=== PATIENT | female | born 1970 ===

== ENCOUNTER 2019-02-28 06:15 | Day surgery (SDC) | payer OTHER ==
[2019-02-28] VITALS (10 sets, daily range): BP systolic 85–115; BP diastolic 54–74
[~2019-02-28] VITALS: Ht 157.5 cm; Wt 72.1 kg
[~2019-02-28 06:15] MED LIST: ceFAZolin 1gm IVPB IVPB ONE; celeBREX 200mg Cap **SURGERY PATIENTS ONLY ORAL ONE; oxyCONTIN 20mg tab ORAL ONE
[2019-02-28] MEDS ORDERED: NKM (07:28)
[2019-02-28] MEDS ORDERED: Duramorph PF 5mg/10ml amp ONE (07:50)
[2019-02-28] MEDS ORDERED: Kenalog-40 1ml Vial ONE (07:50)
[2019-02-28] MEDS ORDERED: Bupivacaine 0.25% Inj 30ml INJ ONE (07:50)
[2019-02-28] MEDS ORDERED: Lidocaine 1% 10mg/ml/Epi 0.005mg/ml 30ml vial INJ ONE (07:50)
[2019-02-28] MEDS ORDERED: LR 1000ml 1,000 ML IVLG SCH (07:53)
--- NOTE | 2019-02-28 07:53 | Anethesia Preoperative Eval ---
Anesthesia Pre-op PMH/ROS General Date of Evaluation: Feb 28, 2019 Anesthesiologist: Naveen ASA Score: ASA 2 Mallampati Score Class I : Soft palate, uvula, fauces, pillars visible Class II: Soft palate, uvula, fauces visible Class III: Soft palate, base of uvula visible Class IV: Only hard plate visible Mallampati Classification: Class II Surgeon: Jose D Diagnosis: Left knee pain Surgical Procedure: Left knee arthroscopy Anesthesia History: none Family History: no anesthesia problems Allergies: Coded Allergies: No Known Allergies (Unverified , 02/26/19) Medications: see eMAR Patient NPO?: Yes NPO Date: Feb 27, 2019 NPO Time: 22:00 Past Medical History Cardiovascular: Denies: HTN, CAD, PA, valve dz, arrhythmia, other Pulmonary: Denies: asthma, COPD, HAROLDO, other Gastrointestinal/Genitourinary: Denies: GERD, CRI, ESRD, other Neurologic/Psychiatric: Denies: dementia, CVA, depression/anxiety, TIA, other Endocrine: Denies: DM, hypothyroidism, steroids, other HEENT: Denies: cataract (L), cataract (R), glaucoma, [place] (L), [place] (R), other Hematology/Immune: Reports: anemia; Denies: DVT, bleeding disorder, other Musculoskeletal/Integumentary: Reports: OA; Denies: RA, DJD, DDD, edema, other PSxH Narrative: c/s Anesthesia Pre-op Phys. Exam Physician Exam Last Vital Signs Date Time Temp Pulse Resp B/P (MAP) Pulse Ox O2 Delivery O2 Flow Rate FiO2 02/28/19 07:24 Room Air 02/28/19 07:20 97.8 59 20 96/63 99 Constitutional: NAD Cardiovascular: RRR Respiratory: CTA Airway Exam Mallampati Score: Class II MO: full ROM: full Anesthesia Pre-op A/P Labs see chart Urine Test Test 02/28/19 06:30 Urine HCG, Qualitative Negative (NEGATIVE) Studies Pre-op Studies: EKG - sr Risk Assessment & Plan Assessment: ASA II Plan: GA Status Change Before Surgery: No Pre-Antibiotics Drug: Grace Salinas MD Feb 28, 2019 07:53
[2019-02-28] MEDS ORDERED: LR 1000ml ONE (08:00)
[2019-02-28] MEDS ORDERED: NS Irrig 4000ml IRRIG ONE ×2 (08:00→08:32)
[2019-02-28] MEDS ORDERED: LORazepam Inj 2mg/ml 1ml IV PRN (08:00)
[2019-02-28] MEDS ORDERED: Ketorolac 30mg Inj IV PRN (08:00)
[2019-02-28] MEDS ORDERED: Sterile Water Irrig 1000ml IRRIG ONE (08:00)
[2019-02-28] MEDS ORDERED: DiphenhydrAMINE 50mg/ml Inj IVP PRN (08:00)
[2019-02-28] MEDS ORDERED: Midazolam 2mg/2ml Inj IVP PRN (08:00)
[2019-02-28] MEDS ORDERED: fentaNYL 100 mcg/2 mL IV PRN (08:00)
[2019-02-28] MEDS ORDERED: Hydromorphone 0.5mg/0.5ml inj IVP PRN (08:00)
[2019-02-28] MEDS ORDERED: Metoclopramide 10mg/2ml Inj IVP PRN (08:00)
[2019-02-28] MEDS ORDERED: Propofol 200mg/20ml IV ONE (08:14)
[2019-02-28] MEDS ORDERED: Lidocaine 1% MPF 10mg/ml 5ml ONE (08:14)
[2019-02-28 08:22] LABS: INR 0.9 (0.9-1.1)
[2019-02-28] MEDS ORDERED: Ketorolac 30mg Inj IM ONE (08:32)
[2019-02-28] MEDS ORDERED: Duramorph PF 5mg/10ml amp IT ONE (08:32)
--- NOTE | 2019-02-28 08:33 | Pre-Procedure Note/Attestation ---
Pre-Procedure Note/Attestation Complete Prior to Procedure Planned Procedure: left Procedure Narrative: knee arthroscopy, possible menisectomy Indications for Procedure Pre-Operative Diagnosis: left knee meniscus tear Attestation I attest that I discussed the nature of the procedure; its benefits; risks and complications; and alternatives (and the risks and benefits of such alternatives ), prior to the procedure, with the patient (or the patient's legal lifeline representatives). I attest that, if there was a reasonable possibility of needing a blood transfusion, the patient (or the patient's legal lifeline representatives) was given the [facility] standardized written summary, pursuant to the Sancho Dariusz Blood Safety Act ([place] Health and Safety Code # 1645, as amended). I attest that I re-evaluated the patient just prior to the surgery and that there has been no change in the patient's H&P, except as documented below: Jose Jeffery MD Feb 28, 2019 08:33
--- NOTE | 2019-02-28 08:34 | Operative Note - PDOC ---
Operative Note Operative Note Pre-op Diagnosis: left knee meniscus tear Procedure: see op report Post-op Diagnosis: same as pre-op plus Operative Findings: consistent w/pre-op dx studies Anesthesia: MAC Specimen: none Complications: none Condition: stable Estimated Blood Loss: none Implant(s) used?: No Jose Jeffery MD Feb 28, 2019 08:34
[2019-02-28] MEDS ORDERED: D5 1/2NS 1,000 ML IV SCH (08:45)
[2019-02-28] MEDS ORDERED: Tylenol #3 tab (300mg/30mg) ORAL PRN (08:45)
[2019-02-28] MEDS ORDERED: HYDROmorphone 1mg/ml Carpuject SUBQ PRN (08:45)
[2019-02-28] MEDS ORDERED: HYDROcodone/Acetamin 5/325 tab ORAL PRN (08:45)
--- NOTE | 2019-02-28 09:19 | Immediate Post-Op Evaluation ---
Immediate Post-Op Evalulation Immediate Post-Op Evalulation Procedure: Left knee arthroscopy Date of Evaluation: Feb 28, 2019 Time of Evaluation: 09:21 IV Fluids: 500 Blood Products: 0 Estimated Blood Loss: 0 Urinary Output: 0 Blood Pressure Systolic: 85 Blood Pressure Diastolic: 54 Pulse Rate: 65 Respiratory Rate: 16 O2 Sat by Pulse Oximetry: 100 Temperature (Fahrenheit): 97.4 Pain Score (1-10): 0 Nausea: No Vomiting: No Complications 0 Patient Status: awake, reacts, patent, none Hydration Status: adequate Drug: Ancef 1g Given Within 1 Hr of Incision: Yes Grace Faustin MD Feb 28, 2019 09:19
--- NOTE | 2019-02-28 09:19 | 48 Hour Post Anesthesia Eval ---
Post Anesthesia Evaluation Procedure: Left knee arthroscopy Date of Evaluation: Feb 28, 2019 Airway: patent Nausea: No Vomiting: No Hydration Status: adequate Cardiopulmonary Status: at baseline Mental Status/LOC: patient returned to baseline Post-Anesthesia Complications: 0 Follow-up care needed: ready to discharge Grace Faustin MD Feb 28, 2019 09:19
--- NOTE | 2019-02-28 17:00 | Operative Note - Dictated ---
DATE OF OPERATION: 02/28/2019 PREOPERATIVE DIAGNOSES: Internal derangement, left knee medial meniscus tear. POSTOPERATIVE DIAGNOSES: 1. Left knee medial meniscus tear. 2. Grade 2 chondral damage medial femoral condyle. 3. Left knee ACL tear. 4. Hypertrophic synovial tissue medial and lateral patellofemoral compartment. PROCEDURES: 1. Left knee arthroscopy and partial medial meniscectomy. 2. Synovectomy medial and lateral patellofemoral compartment. 3. Gentle chondroplasty of medial compartment, posterior femoral condyle. SURGEON: Jose Jeffery M.D. ANESTHESIA: MAC. INDICATION FOR PROCEDURE: The patient is a pleasant 49-year-old male with significant injury to left knee. He had failed conservative treatment, elected to undergo left knee diagnostic arthroscopy and possible meniscectomy. Risks, limitations, expectations, complication of procedure were discussed in detail. All questions addressed. DESCRIPTION OF PROCEDURE: After informed consent was obtained, the patient was brought to the operating room and placed under general anesthesia. Left leg was prepped and draped in a sterile manner. Time-out was performed. Ancef was administered. Inferolateral stab incision was then made. Trocar was introduced into the patellofemoral compartment. There was hypertrophic fat pad synovial tissue making visualization difficult. Medial gutter was free of any loose bodies. Medial compartment entered. There was complex tear of posterior horn of medial meniscus. Medial working portal was established. Partial meniscectomy using a shaver was performed. There was grade 2 chondral damage in the posterior medial femoral condyle. Gentle chondroplasty of the chondral flaps was performed to stable tissue. Once that was completed, intercondylar notch was entered. The ACL attachment along the medial femoral condyle was completely detached. The ACL was noted to be free. Debridement . The patient was not consented for a formal ACL reconstruction. Therefore it was felt that at this point, formal reconstruction would have to be delayed and fashioned in second-stage. The lateral compartment was entered, free of meniscal chondral damage. The camera was then repositioned into the patellofemoral compartment. Synovectomy was completed. Once this was done, the patient was awoken and taken to recovery with stable vital signs. ESTIMATED BLOOD LOSS: None. COMPLICATIONS: None. SPECIMENS: None. Jose Jeffery M.D. DR: Nathan JOB#: [id number] CC:
== END 2019-02-28 11:25 | disposition home or self-care (01) ==
LOC: EDSEX 06:15 → SUR 06:15
DX: S83.242A Other tear of medial meniscus, current injury, left knee, initial encounter (principal); S83.512A Sprain of anterior cruciate ligament of left knee, initial encounter; X58.XXXA Exposure to other specified factors, initial encounter; Y92.9 Unspecified place or not applicable; M67.262 Synovial hypertrophy, not elsewhere classified, left lower leg; M19.90 Unspecified osteoarthritis, unspecified site
CPT/HCPCS: 29876; 29881; 36415; 81025; 85610; 85730; J0690; J1885; J2250; J2405; J2704; J3010; J3301; J3490; 94003; 94150

== ENCOUNTER 2019-04-04 04:56 | Day surgery (SDC) | payer OTHER ==
[2019-04-04] VITALS (16 sets, daily range): BP systolic 102–127; BP diastolic 49–76
[~2019-04-04] VITALS: Ht 157.5 cm; Wt 72.1 kg
[~2019-04-04 04:56] MED LIST changes: +NKM; -ceFAZolin 1gm IVPB IVPB ONE; +ceFAZolin sod 1gm in D5W 55ml IVPB ONE
[2019-04-04] MEDS ORDERED: oxyCONTIN 20mg tab ORAL ONE (06:00)
[2019-04-04] MEDS ORDERED: ceFAZolin 1gm IVPB IVPB ONE ×2 (06:00)
[2019-04-04] MEDS ORDERED: celeBREX 200mg Cap **SURGERY PATIENTS ONLY ORAL ONE (06:00)
[2019-04-04 06:33] LABS: BASOPHILS % (AUTO) 0.8 % (0.0-2.0); EOSINOPHILS % (AUTO) 2.9 % (0.0-3.0); HEMATOCRIT 39.5 % (37.0-47.0); HEMOGLOBIN 13.7 G/DL (12.0-16.0); LYMPHOCYTES % (AUTO) 38.2 % (20.0-45.0); MEAN CORPUSCULAR VOLUME 93 FL (80-99); MONOCYTES % (AUTO) 8.3 % (1.0-10.0); NEUTROPHILS % (AUTO) 49.8 % (45.0-75.0); PLATELET COUNT 313 K/UL (150-450); RED BLOOD COUNT 4.27 M/UL (4.20-5.40); RED CELL DISTRIBUTION WIDTH 11.1 % (11.6-14.8); WHITE BLOOD COUNT 8.4 K/UL (4.8-10.8)
[2019-04-04 06:39] LABS: ANION GAP 9 mmol/L (5-15); BLOOD UREA NITROGEN 16 mg/dL (7-18); CALCIUM 8.9 MG/DL (8.5-10.1); CARBON DIOXIDE 25 MMOL/L (21-32); CHLORIDE 104 MMOL/L (98-107); CREATININE 0.5 MG/DL (0.55-1.30); POTASSIUM 3.6 MMOL/L (3.5-5.1); SODIUM 138 MMOL/L (136-145)
[2019-04-04 06:43] LABS: INR 0.9 (0.9-1.1)
[2019-04-04] MEDS ORDERED: LR 1000ml 1,000 ML IVLG SCH (07:01)
--- NOTE | 2019-04-04 07:04 | Anethesia Preoperative Eval ---
Anesthesia Pre-op PMH/ROS General Date of Evaluation: Apr 04, 2019 Time of Evaluation: 07:39 Anesthesiologist: Lynnette ASA Score: ASA 2 Mallampati Score Class I : Soft palate, uvula, fauces, pillars visible Class II: Soft palate, uvula, fauces visible Class III: Soft palate, base of uvula visible Class IV: Only hard plate visible Mallampati Classification: Class II Surgeon: Jose D Diagnosis: L Knee Pain Surgical Procedure: L Knee Arthroscopy Anesthesia History: none Family History: no anesthesia problems Allergies: Coded Allergies: No Known Allergies (Unverified , 02/26/19) Medications: see eMAR Patient NPO?: Yes Past Medical History Gastrointestinal/Genitourinary: Reports: GERD Hematology/Immune: Reports: anemia Other: obesity PSxH Narrative: C/S, L knee Arthroscopy Anesthesia Pre-op Phys. Exam Physician Exam Last Vital Signs Date Time Temp Pulse Resp B/P (MAP) Pulse Ox O2 Delivery O2 Flow Rate FiO2 04/04/19 06:06 Room Air 04/04/19 05:46 97.1 60 18 114/66 100 Constitutional: NAD Neurologic: CN 2-12 intact Cardiovascular: RRR Respiratory: CTA Gastrointestinal: S/NT/ND Airway Exam Mallampati Score: Class II MO: full ROM: full Teeth: intact Anesthesia Pre-op A/P Labs Hematology Test 04/04/19 05:30 White Blood Count 8.4 K/UL (4.8-10.8) Red Blood Count 4.27 M/UL (4.20-5.40) Hemoglobin 13.7 G/DL (12.0-16.0) Hematocrit 39.5 % (37.0-47.0) Mean Corpuscular Volume 93 FL (80-99) Mean Corpuscular Hemoglobin 32.2 PG (27.0-31.0) H Mean Corpuscular Hemoglobin Concent 34.8 G/DL (32.0-36.0) Red Cell Distribution Width 11.1 % (11.6-14.8) L Platelet Count 313 K/UL (150-450) Mean Platelet Volume 6.3 FL (6.5-10.1) L Neutrophils (%) (Auto) 49.8 % (45.0-75.0) Lymphocytes (%) (Auto) 38.2 % (20.0-45.0) Monocytes (%) (Auto) 8.3 % (1.0-10.0) Eosinophils (%) (Auto) 2.9 % (0.0-3.0) Basophils (%) (Auto) 0.8 % (0.0-2.0) Coagulation Test 04/04/19 05:30 Prothrombin Time Pending Prothromb Time International Ratio Pending Activated Partial Thromboplast Time Pending Chemistry Test 04/04/19 05:30 Sodium Level 138 MMOL/L (136-145) Potassium Level 3.6 MMOL/L (3.5-5.1) Chloride Level 104 MMOL/L (98-107) Carbon Dioxide Level 25 MMOL/L (21-32) Anion Gap 9 mmol/L (5-15) Blood Urea Nitrogen 16 mg/dL (7-18) Creatinine 0.5 MG/DL (0.55-1.30) L Estimat Glomerular Filtration Rate > 60 mL/min (>60) Glucose Level 96 MG/DL (74-106) Calcium Level 8.9 MG/DL (8.5-10.1) Urine Test Test 04/04/19 05:15 Urine HCG, Qualitative Pending Risk Assessment & Plan Assessment: ASA 2 Plan: GA, Adductor Block SED Status Change Before Surgery: No Pre-Antibiotics Dru Gram Ancef IV Given Within 1 Hr of Incision: Yes Time Given: 08:01 Elliot Church MD Apr 04, 2019 07:04
[2019-04-04] MEDS ORDERED: Metoclopramide 10mg/2ml Inj IVP PRN (07:15)
[2019-04-04] MEDS ORDERED: fentaNYL 100 mcg/2 mL IV PRN (07:15)
[2019-04-04] MEDS ORDERED: Meperidine 50mg/ml Inj(FOR RIGORS ONLY) IVP PRN (07:15)
[2019-04-04] MEDS ORDERED: HYDROcodone/Acetamin 7.5/325 tab ORAL PRN (07:15)
[2019-04-04] MEDS ORDERED: DiphenhydrAMINE 50mg/ml Inj IVP PRN (07:15)
[2019-04-04] MEDS ORDERED: Ketorolac 30mg Inj IV PRN ×2 (07:15)
[2019-04-04] MEDS ORDERED: HYDROcodone/Acetamin 5/325 tab ORAL PRN ×2 (07:15→18:35)
[2019-04-04] MEDS ORDERED: Labetalol 5mg/ml 20ml vial IV PRN (07:15)
[2019-04-04] MEDS ORDERED: Atropine Sulfate 0.4mg/ml inj IVP PRN (07:15)
[2019-04-04] MEDS ORDERED: oxyCODONE HCL/Acetaminophen 5/325mg ORAL PRN (07:15)
[2019-04-04] MEDS ORDERED: Midazolam 2mg/2ml Inj IVP PRN (07:15)
[2019-04-04] MEDS ORDERED: LORazepam Inj 2mg/ml 1ml IV PRN (07:15)
[2019-04-04] MEDS ORDERED: Acetaminophen (Non formulary) 100 ML IV ONE (07:15)
--- NOTE | 2019-04-04 07:17 | Operative Note - PDOC ---
Operative Note Operative Note Pre-op Diagnosis: left knee acl tear Procedure: see op report Post-op Diagnosis: same as pre-op plus Operative Findings: consistent w/pre-op dx studies Anesthesia: regional Specimen: none Complications: none Condition: stable Estimated Blood Loss: none Implant(s) used?: Yes Jose Jeffery MD Apr 04, 2019 07:17
--- NOTE | 2019-04-04 07:17 | Pre-Procedure Note/Attestation ---
Pre-Procedure Note/Attestation Complete Prior to Procedure Planned Procedure: left Procedure Narrative: knee acl reconstruction Indications for Procedure Pre-Operative Diagnosis: left knee acl tear Attestation I attest that I discussed the nature of the procedure; its benefits; risks and complications; and alternatives (and the risks and benefits of such alternatives ), prior to the procedure, with the patient (or the patient's legal healthcare sales representative). I attest that, if there was a reasonable possibility of needing a blood transfusion, the patient (or the patient's legal healthcare sales representative) was given the [facility] standardized written summary, pursuant to the Sancho Dariusz Blood Safety Act ([place] Health and Safety Code # 1645, as amended). I attest that I re-evaluated the patient just prior to the surgery and that there has been no change in the patient's H&P, except as documented below: Jose Jeffery MD Apr 04, 2019 07:17
[2019-04-04] MEDS ORDERED: Lidocaine 1% MPF 10mg/ml 5ml ONE (07:22)
[2019-04-04] MEDS ORDERED: Sodium Chloride 10ml vial INJ ONE (07:22)
[2019-04-04] MEDS ORDERED: Dexamethasone 4mg/ml vial ONE ×2 (07:22→07:37)
[2019-04-04] MEDS ORDERED: fentaNYL 100 mcg/2 mL IV ONE (07:25)
[2019-04-04] MEDS ORDERED: Ketamine 500mg/10ml vial ONE (07:25)
[2019-04-04] MEDS ORDERED: Ketorolac 30mg Inj ONE (07:26)
[2019-04-04] MEDS ORDERED: Kenalog-40 1ml Vial ONE (07:26)
[2019-04-04] MEDS ORDERED: Bupivacaine 0.25% Inj 30ml INJ ONE (07:27)
[2019-04-04] MEDS ORDERED: Lidocaine 1% 10mg/ml/Epi 0.005mg/ml 30ml vial INJ ONE (07:27)
[2019-04-04] MEDS ORDERED: Duramorph PF 5mg/10ml amp ONE (07:27)
[2019-04-04] MEDS ORDERED: Propofol 200mg/20ml IV ONE (07:30)
[2019-04-04] MEDS ORDERED: Sterile Water Irrig 1000ml IRRIG ONE (07:30)
[2019-04-04] MEDS ORDERED: LR 1000ml ONE (07:30)
--- NOTE | 2019-04-04 07:33 | Immediate Post-Op Evaluation ---
Immediate Post-Op Evalulation Immediate Post-Op Evalulation Procedure: L Knee Arthroscopy, ACL Repair Date of Evaluation: Apr 04, 2019 Time of Evaluation: 09:47 IV Fluids: 1000 LR Blood Products: 0 Estimated Blood Loss: 25 Urinary Output: 0 Blood Pressure Systolic: 105 Blood Pressure Diastolic: 68 Pulse Rate: 86 Respiratory Rate: 16 O2 Sat by Pulse Oximetry: 99 Temperature (Fahrenheit): 98.7 Pain Score (1-10): 2 Nausea: No Vomiting: No Complications 0 Patient Status: awake, reacts, patent, extubated, none Hydration Status: adequate Dru Gram Acef IV Given Within 1 Hr of Incision: Yes Time Given: 08:01 Elliot Church MD Apr 04, 2019 07:33
--- NOTE | 2019-04-04 07:34 | 48 Hour Post Anesthesia Eval ---
Post Anesthesia Evaluation Procedure: L Knee Arthroscopy, ACL Repair Date of Evaluation: Apr 04, 2019 Time of Evaluation: 11:54 Blood Pressure Systolic: 107 0: 67 Pulse Rate: 63 Respiratory Rate: 18 Temperature (Fahrenheit): 98.6 O2 Sat by Pulse Oximetry: 100 Airway: patent Nausea: No Vomiting: No Pain Intensity: 2 Hydration Status: adequate Cardiopulmonary Status: Stable Mental Status/LOC: patient returned to baseline Follow-up Care/Observations: 0 Post-Anesthesia Complications: 0 Follow-up care needed: ready to discharge Elliot Church MD Apr 04, 2019 07:34
[2019-04-04] MEDS ORDERED: EPINEPHrine 1mg/1ml Amp ONE (07:37)
[2019-04-04] MEDS ORDERED: Ropivacaine 5mg/ml Vial 30ml INJ ONE (07:37)
[2019-04-04] MEDS ORDERED: NS Irrig 4000ml IRRIG ONE (09:00)
[2019-04-04] MEDS: Hydromorphone 0.5mg/0.5ml inj IVP PRN ×2 (10:05→10:40)
--- NOTE | 2019-04-04 16:15 | Operative Note - Dictated ---
DATE OF OPERATION: 04/04/2019 PREOPERATIVE DIAGNOSIS: Left knee traumatic ACL tear. POSTOPERATIVE DIAGNOSIS: Left knee traumatic ACL tear. PROCEDURES: 1. Left knee ACL reconstruction with tibialis anterior allograft. 2. Synovectomy, medial and lateral patellofemoral compartment. 3. Diagnostic arthroscopy, left knee. SURGEON: Jose Jeffery M.D. ANESTHESIA: Femoral with general. INDICATION FOR PROCEDURE: The patient is a pleasant female, underwent a left knee arthroscopy, medial meniscectomy, chondroplasty. deficient ACL. She was not consenting for surgery. Therefore, stage reconstruction of the ACL was recommended. She is here for the second stage with the ACL reconstruction. Risks, limitations, expectations, complications of procedure were discussed in detail. All questions were addressed. DESCRIPTION OF PROCEDURE: After informed consent was obtained, the patient was brought to the operating room. The patient was placed under femoral adductor block and general anesthesia. Left leg was prepped and draped in a sterile manner. Time-out was performed. Previous skin incision was marked out. The skin was incised with diagnostic arthroscopy. . There was no significant hypertrophic synovial tissue in patellofemoral compartment. Medial and lateral gutter were free of any loose bodies. Medial compartment was entered. There was some chondral damage in the distal femoral condyle. Meniscus was probed, noted to be intact. Intercondylar notch was devoid of the ACL, which was debrided in the last surgery. Lateral compartment was entered, free of meniscal chondral damage. At this point, the femoral and tibial tunnel was prepared. The tibialis anterior allograft, which was fashioned on the back table, which measured 9 mm was then marked out and passed the tibial tunnel, intercondylar notch in the lateral compartment. Tibial screw fixation was then placed. The ACL was noted to be reconstructed well with no impingement of flexion and extension. At this point, the instruments were removed. Portal sites were closed with 3-0 Monocryl sutures. IMPLANTS: Includes tibialis anterior allograft, Biomet suture relay system, and a 10 x 30 tibial interference screw. Jose Jeffery M.D. DR: VENKATESH JOB#: [id number] CC:
[2019-04-04] MEDS ORDERED: HYDROmorphone 1mg/ml Carpuject SUBQ PRN (18:34)
[2019-04-04] MEDS ORDERED: D5 1/2NS 1,000 ML IV SCH (18:34)
[2019-04-04] MEDS ORDERED: Tylenol #3 tab (300mg/30mg) ORAL PRN (18:35)
== END 2019-04-04 13:25 | disposition home or self-care (01) ==
LOC: SUR 04:56
DX: S83.512A Sprain of anterior cruciate ligament of left knee, initial encounter (principal); K21.9 Gastro-esophageal reflux disease without esophagitis; E66.9 Obesity, unspecified; X58.XXXA Exposure to other specified factors, initial encounter; Y92.9 Unspecified place or not applicable
CPT/HCPCS: 29876; 29888; 36415; 80048; 81025; 85025; 85610; 85730; C1713; J0171; J0690; J1100; J1170; J1885; J2175; J2250; J2405; J2704; J2795; J3010; J3490; J7120; 94003; 94150